=== PATIENT | male | born 1960 | race Caucasian/White ===

== ENCOUNTER 2020-09-07 09:21 | Inpatient (IN) ==
[2020-09-07] MEDS ORDERED: Albuterol 2.5 MG/3 ML NEBULIZER IH ONE (09:33)
[2020-09-07 09:51] LABS: Bilirubin,Urine Negative (Negative); Blood,Urine Negative (Negative); Clarity,Urine Clear (Clear); Color,Urine Yellow (Yellow); Glucose,Urine (UA) Normal (Normal); Ketones,Urine Negative (Negative); Leukocyte Esterase,Urine Negative (Negative); Nitrite,Urine Negative (Negative); PH,Urine 5.5 pH Units (5.0-8.0); Protein,Urine Negative (Neg-Trace); Urobilinogen,Urine Normal (Normal)
[2020-09-07 09:59] LABS: Basophils # 0.1 K/mcL (0.0-0.2); Basophils % 0.7 %; Eosinophils # 0.3 K/mcL (0.0-0.6); Eosinophils % 2.9 %; Hematocrit 39.2 % (37.5-50.1); Hemoglobin 10.6 g/dL (12.9-16.9); Immature Granulocytes % 0.6 % (0-4); Lymphocytes % 11.1 %; Mean Corpuscular Hemoglobin 21.6 pg (28.0-33.3); Mean Platelet Volume 9.8 fL (9.4-12.4); Monocytes # 1.4 K/mcL (0.0-1.3); Monocytes % 16.5 %; Neutrophils # 5.9 K/mcL (1.6-8.9); Nucleated Red Blood Cells 0.3 /100 WBC (0); Platelet Count 257 K/mcL (140-400); Segmented Neutrophils % 68.2 %; White Blood Count 8.7 K/mcL (4.3-11.1)
[2020-09-07] MEDS ORDERED: Furosemide 40 MG/4 ML VIAL IVP ONE (10:07)
[2020-09-07 10:16] LABS: Alanine Aminotransferase 7 Units/L (7-52); Albumin 3.9 g/dL (3.5-5.7); Albumin/Globulin Ratio 1.5 (1.1-2.2); Alkaline Phosphatase 75 Units/L (34-104); Aspartate Amino Transferase 10 Units/L (13-39); BUN/Creatinine Ratio 10 (6-26); Bilirubin,Direct 0.1 mg/dL (0.0-0.2); Bilirubin,Indirect 0.3 mg/dL (0.0-1.0); Bilirubin,Total 0.4 mg/dL (0.3-1.0); Blood Urea Nitrogen 6 mg/dL (8-23); Calcium 8.3 mg/dL (8.6-10.3); Carbon Dioxide 34 mEq/L (23-29); Chloride 91 mEq/L (98-107); Globulin 2.6 g/dL (2.4-3.5); Glucose 115 mg/dL (70-105); Osmolality,Calculated 271 (280-300); Potassium 4.4 mEq/L (3.5-5.1); Sodium 131 mEq/L (136-145); Total Protein 6.5 g/dL (6.4-8.9); eGFR For African Americans > 60 (> 60); eGFR For Non-African Americans > 60 (> 60)
[2020-09-07 10:20] LABS: Troponin I < 0.03 ng/mL (< 0.04)
[2020-09-07 10:24] LABS: Anisocytosis 1+ (Not Present)
[2020-09-07 10:40] LABS: ABG Base Excess 6 mEq/L (-2 to 3); ABG HCO3 35 mEq/L (21-27); ABG Oxygen Saturation 61 % (95-98); ABG PCO2 70 mmHg (35-45); ABG PO2 37 mmHg (85-104); ABG TCO2 37 mEq/L (20-26)
[2020-09-07] MEDS ORDERED: Naloxone 0.4 MG/ML INJ IVP PRN (11:24)
[2020-09-07] MEDS ORDERED: Acetaminophen 325 MG TABLET PO PRN (11:24)
[2020-09-07] MEDS ORDERED: Ondansetron 4 MG/2 ML VIAL IVP PRN (11:24)
[2020-09-07] MEDS ORDERED: Perflutren Lipid Microsphere 1.3 ML in 0.9 % Sodium Chloride 8.7 ML IVP PRN (11:31)
[2020-09-07] MEDS: Budesonide/Formoterol 160/4.5 1 PUFF INH IH SCH ×2 (12:52→21:32)
[2020-09-07] MEDS ORDERED: *HR* LORazepam 2 MG/ML VIAL IVP PRN ×2 (12:57)
[2020-09-07] MEDS: Vitamin B Complex/Vit C/Vit E 1 EACH TABLET PO SCH (13:41)
[2020-09-07] MEDS: Thiamine (B-1) 100 MG TABLET PO SCH (13:42)
[2020-09-07] MEDS: Folic Acid 1 MG TABLET PO SCH (13:42)
[2020-09-07 14:42] LABS: ABG Base Excess 8 mEq/L (-2 to 3); ABG HCO3 37 mEq/L (21-27); ABG Oxygen Saturation 85 % (95-98); ABG PCO2 72 mmHg (35-45); ABG PH 7.32 pH Units (7.32-7.45); ABG PO2 57 mmHg (85-104); ABG TCO2 39 mEq/L (20-26); Blood Gas Pressure Support 15 cm H2O
[2020-09-07 17:40] LABS: ABG Base Excess 10 mEq/L (-2 to 3); ABG HCO3 39 mEq/L (21-27); ABG Oxygen Saturation 91 % (95-98); ABG PCO2 75 mmHg (35-45); ABG PH 7.33 pH Units (7.32-7.45); ABG PO2 68 mmHg (85-104); ABG TCO2 42 mEq/L (20-26); Blood Gas Pressure Support 20 cm H2O
[2020-09-07] MEDS: MethylPREDNISolone 40 MG/ML VIAL IVP SCH (17:50)
[2020-09-07] MEDS: Furosemide 40 MG/4 ML VIAL IVP SCH (17:50)
[2020-09-07] MEDS: tiZANidine 4 MG TABLET PO SCH ×2 (17:50→21:29)
[2020-09-07 22:17] LABS: ABG Base Excess 11 mEq/L (-2 to 3); ABG HCO3 39 mEq/L (21-27); ABG Oxygen Saturation 92 % (95-98); ABG PCO2 68 mmHg (35-45); ABG PH 7.37 pH Units (7.32-7.45); ABG PO2 68 mmHg (85-104); ABG TCO2 41 mEq/L (20-26)
[2020-09-08] MEDS: MethylPREDNISolone 40 MG/ML VIAL IVP SCH ×3 (01:06→18:55)
[2020-09-08] MEDS: *HR* Enoxaparin 40 MG/0.4 ML SYRINGE SQ SCH (06:09)
[2020-09-08 07:04] LABS: Hematocrit 41.4 % (37.5-50.1); Hemoglobin 11.3 g/dL (12.9-16.9); Immature Granulocytes % 0.5 % (0-4); Lymphocytes # 0.4 K/mcL (0.6-4.6); Lymphocytes % 6.3 %; Mean Corpuscular HGB Conc 27.3 g/dL (31.6-35.5); Mean Corpuscular Hemoglobin 21.6 pg (28.0-33.3); Mean Platelet Volume 10.3 fL (9.4-12.4); Monocytes # 0.1 K/mcL (0.0-1.3); Monocytes % 1.4 %; Neutrophils # 5.2 K/mcL (1.6-8.9); Platelet Count 263 K/mcL (140-400); Red Blood Count 5.24 M/mcL (4.19-5.50); Red Cell Distribution Width 20.2 % (11.5-14.5); Segmented Neutrophils % 91.8 %; White Blood Count 5.7 K/mcL (4.3-11.1)
[2020-09-08 08:11] LABS: Anisocytosis 1+ (Not Present); Hypochromasia Present (Not Present); Polychromasia 1+ (Not Present)
[2020-09-08 08:18] LABS: Alanine Aminotransferase 7 Units/L (7-52); Albumin 3.8 g/dL (3.5-5.7); Albumin/Globulin Ratio 1.4 (1.1-2.2); Alkaline Phosphatase 72 Units/L (34-104); Aspartate Amino Transferase 12 Units/L (13-39); BUN/Creatinine Ratio 12 (6-26); Bilirubin,Total 0.4 mg/dL (0.3-1.0); Blood Urea Nitrogen 7 mg/dL (8-23); Calcium 8.7 mg/dL (8.6-10.3); Carbon Dioxide 38 mEq/L (23-29); Chloride 91 mEq/L (98-107); Chol/HDL Ratio 3.3 (0-4.9); Cholesterol 114 mg/dL (< 200); Globulin 2.8 g/dL (2.4-3.5); Glucose 155 mg/dL (70-105); HDL Cholesterol 35 mg/dL (40-59); LDL Cholesterol,Calculated 63 mg/dL (< 100); Magnesium 2.1 mg/dL (1.6-2.6); Osmolality,Calculated 281 (280-300); Phosphorous 3.1 mg/dL (2.7-4.5); Potassium 4.3 mEq/L (3.5-5.1); Sodium 135 mEq/L (136-145); Total Protein 6.6 g/dL (6.4-8.9); Triglycerides 82 mg/dL (< 150); eGFR For African Americans > 60 (> 60); eGFR For Non-African Americans > 60 (> 60)
[2020-09-08] MEDS: Loratadine 10 MG TABLET PO SCH (09:51)
[2020-09-08] MEDS: tiZANidine 4 MG TABLET PO SCH ×3 (09:51→20:11)
[2020-09-08] MEDS: amLODIPine 5 MG TABLET PO SCH (09:51)
[2020-09-08] MEDS: lisinopriL 20 MG TABLET PO SCH (09:51)
[2020-09-08] MEDS: Folic Acid 1 MG TABLET PO SCH (09:51)
[2020-09-08] MEDS: Vitamin B Complex/Vit C/Vit E 1 EACH TABLET PO SCH (09:51)
[2020-09-08] MEDS: atenoloL 25 MG TABLET PO SCH (09:52)
[2020-09-08] MEDS: Furosemide 40 MG/4 ML VIAL IVP SCH ×2 (09:52→18:58)
[2020-09-08] MEDS: Budesonide/Formoterol 160/4.5 1 PUFF INH IH SCH ×2 (10:09→22:36)
[2020-09-08] MEDS: Thiamine (B-1) 100 MG TABLET PO SCH (12:33)
[2020-09-08] MEDS: Aspirin Enteric Coated 81 MG Tablet PO SCH (15:10)
[2020-09-08] MEDS: Nicotine 14 MG PATCH.TD24 TD SCH (15:11)
[2020-09-08] MEDS ORDERED: Perflutren Lipid Microsphere 1.3 ML in 0.9 % Sodium Chloride 8.7 ML IVP PRN (17:55)
[2020-09-09 04:41] LABS: BUN/Creatinine Ratio 24 (6-26); Blood Urea Nitrogen 15 mg/dL (8-23); Calcium 8.6 mg/dL (8.6-10.3); Carbon Dioxide 37 mEq/L (23-29); Chloride 90 mEq/L (98-107); Glucose 155 mg/dL (70-105); Magnesium 2.2 mg/dL (1.6-2.6); Osmolality,Calculated 280 (280-300); Sodium 133 mEq/L (136-145); eGFR For African Americans > 60 (> 60); eGFR For Non-African Americans > 60 (> 60)
[2020-09-09] MEDS: *HR* Enoxaparin 40 MG/0.4 ML SYRINGE SQ SCH (05:34)
[2020-09-09] MEDS: MethylPREDNISolone 40 MG/ML VIAL IVP SCH (05:35)
[2020-09-09 06:51] VITALS: BP 123/79
[2020-09-09] MEDS: Vitamin B Complex/Vit C/Vit E 1 EACH TABLET PO SCH (07:58)
[2020-09-09] MEDS: Aspirin Enteric Coated 81 MG Tablet PO SCH (07:58)
[2020-09-09] MEDS: amLODIPine 5 MG TABLET PO SCH (07:59)
[2020-09-09] MEDS: Loratadine 10 MG TABLET PO SCH (07:59)
[2020-09-09] MEDS: Nicotine 14 MG PATCH.TD24 TD SCH (07:59)
[2020-09-09] MEDS: atenoloL 25 MG TABLET PO SCH (07:59)
[2020-09-09] MEDS: Folic Acid 1 MG TABLET PO SCH (07:59)
[2020-09-09] MEDS: Thiamine (B-1) 100 MG TABLET PO SCH (07:59)
[2020-09-09] MEDS: Furosemide 40 MG/4 ML VIAL IVP SCH (08:00)
[2020-09-09] MEDS: lisinopriL 20 MG TABLET PO SCH (08:00)
[2020-09-09] MEDS: tiZANidine 4 MG TABLET PO SCH (08:03)
[2020-09-09] MEDS: Budesonide/Formoterol 160/4.5 1 PUFF INH IH SCH (10:25)
== END 2020-09-09 14:25 | disposition home health service (06) | DRG 194 ==
LOC: INPPIK 09:21 → EMEROOPIK 09:21 → INPPIK 12:27
PROVIDERS: ADMIT Family Medicine; ATTEND Family Medicine